=== PATIENT | male | born 1985 | race Caucasian/White ===

== ENCOUNTER 2022-07-05 15:59 | Observation (INO) | payer BC ==
[2022-07-05] MEDS ORDERED: LORazepam 2 MG/ML SDV IVPUSH ONE (16:45)
[2022-07-05] MEDS: Sodium Chloride 0.9% 10 ML Syringe FLUSH PRN (17:13)
[2022-07-05 17:18] LABS: ANION GAP 15.6 mEq/L (7-13); CHLORIDE,CL 100 mmol/L (98-107); SODIUM,NA 138 mmol/L (136-145)
[2022-07-05 17:22] LABS: AMPHETAMINES,URINE NEGATIVE (NEGATIVE); BARBITURATES,URINE NEGATIVE (NEGATIVE); BENZODIAZEPINE,URINE NEGATIVE (NEGATIVE); MDMA (ECSTASY), URINE NEGATIVE (NEGATIVE); METHADONE,URINE NEGATIVE (NEGATIVE); METHAMPHETAMINES,URINE NEGATIVE (NEGATIVE); OPIATES,URINE NEGATIVE (NEGATIVE); OXYCODONE,URINE NEGATIVE (NEGATIVE); PHENCYCLIDINE,URINE NEGATIVE (NEGATIVE); TCA,URINE NEGATIVE (NEGATIVE)
[2022-07-05 17:24] LABS: ACETAMINOPHEN 0 ug/mL (10-30 (Therapeutic)); ESTIMATED GFR 118 mL/min (>=60)
[2022-07-05] MEDS ORDERED: Ibuprofen 400 MG Tab PO PRN (18:54)
[2022-07-05] MEDS ORDERED: Albuterol/Ipratropium 3.0-0.5 MG/3 ML Neb Soln NEB PRN (18:54)
[2022-07-05] MEDS ORDERED: MVI, Adult with Vitamin K 10 ML, Folic Acid 1 MG, Thiamine 100 MG in Lactated Ringers 1... IV ONE ×4 (18:54)
[2022-07-05] MEDS ORDERED: Haloperidol Lactate 5 MG/ML SDV IM PRN (18:54)
[2022-07-05] MEDS ORDERED: Ketorolac 30 MG/ML SDV IVPUSH PRN (18:54)
[2022-07-05] MEDS ORDERED: Ondansetron 4 MG/2 ML SDV IVPUSH PRN (18:54)
[2022-07-05] MEDS ORDERED: HYDROmorphone 0.5 MG/0.5 ML Syringe IVPUSH PRN (18:54)
[2022-07-05] MEDS: cloNIDine 0.1 MG Tab PO SCH (22:15)
[2022-07-06 05:44] LABS: ANION GAP 11.9 mEq/L (7-13)
[2022-07-06] MEDS: LORazepam 2 MG/ML SDV IV PRN ×3 (08:32→16:13)
[2022-07-06] MEDS: Thiamine 100 MG Tab PO SCH (08:35)
[2022-07-06] MEDS: Folic Acid 1 MG Tab PO SCH (08:35)
[2022-07-06] MEDS: Multivitamin Tab PO SCH (08:35)
[2022-07-06] MEDS ORDERED: Acetaminophen/Butalbital/Caffeine 325-50-40 MG Tab PO PRN (09:02)
[2022-07-06] MEDS ORDERED: Topiramate 25 MG Tab PO ONE (10:45)
[2022-07-06] MEDS: Nicotine 21 MG/24 Hr Patch TRDERM SCH (11:11)
[2022-07-06] MEDS ORDERED: diphenhydrAMINE 50 MG/ML SDV IVPUSH ONE (19:04)
[2022-07-06] MEDS ORDERED: Flumazenil 0.1 MG/ML 5 ML MDV IVPUSH PRN (19:27)
[2022-07-06] MEDS ORDERED: Melatonin 3 MG Tab PO PRN (19:29)
[2022-07-06] MEDS ORDERED: Topiramate 25 MG Tab PO SCH (21:00)
[2022-07-06] MEDS ORDERED: cloNIDine 0.1 MG Tab PO SCH (21:00)
[2022-07-06] MEDS: Topiramate 25 MG Tab PO SCH (21:28)
[2022-07-06] MEDS: QUEtiapine 25 MG Tab PO SCH (21:28)
[2022-07-06] MEDS: cloNIDine 0.1 MG Tab PO SCH (21:30)
[2022-07-06] MEDS ORDERED: LORazepam 2 MG/ML SDV IVPUSH ONE (21:30)
[2022-07-07] MEDS: LORazepam 2 MG/ML SDV IV PRN (01:46)
[2022-07-07] MEDS: QUEtiapine 25 MG Tab PO SCH ×2 (09:12→20:22)
[2022-07-07] MEDS: Folic Acid 1 MG Tab PO SCH (09:12)
[2022-07-07] MEDS: Multivitamin Tab PO SCH (09:12)
[2022-07-07] MEDS: Nicotine 21 MG/24 Hr Patch TRDERM SCH (09:12)
[2022-07-07] MEDS: Thiamine 100 MG Tab PO SCH (09:12)
[2022-07-07] MEDS: Sodium Chloride 0.9% 10 ML Syringe FLUSH PRN (09:14)
[2022-07-07] MEDS: LORazepam 0.5 MG Tab PO PRN ×2 (12:14→20:22)
[2022-07-07] MEDS: cloNIDine 0.1 MG Tab PO SCH (20:21)
[2022-07-07] MEDS: Topiramate 25 MG Tab PO SCH (20:23)
[2022-07-08] MEDS: Folic Acid 1 MG Tab PO SCH (07:03)
[2022-07-08] MEDS: QUEtiapine 25 MG Tab PO SCH (07:04)
[2022-07-08] MEDS: Multivitamin Tab PO SCH (07:04)
[2022-07-08] MEDS: Thiamine 100 MG Tab PO SCH (07:04)
[2022-07-08] MEDS: Nicotine 21 MG/24 Hr Patch TRDERM SCH (07:05)
== END 2022-07-08 07:55 | disposition other institution (70) ==
LOC: DL.ED 15:59 → DL.MS 17:58 → DL.ED 18:31
PROVIDERS: ADMIT Internal Medicine; ATTEND Internal Medicine
DX: F10.139 Alcohol abuse with withdrawal, unspecified (principal); R25.1 Tremor, unspecified; D72.829 Elevated white blood cell count, unspecified; R51.9 Headache, unspecified; F41.9 Anxiety disorder, unspecified; M19.90 Unspecified osteoarthritis, unspecified site; F17.210 Nicotine dependence, cigarettes, uncomplicated; Z88.8 Allergy status to other drugs, medicaments and biological substances; Y90.0 Blood alcohol level of less than 20 mg/100 ml
CPT/HCPCS: 36415; 80053; 80143; 80179; 80305; 80307; 81001; 83735; 85025; 85610; 96374; 96375; 96376; 99283; 99285; A9270; G0378; J2060; J3411; J3490; J7120; 99222; 99232; 99238